=== PATIENT | male | born 1965 | race Caucasian/White ===

== ENCOUNTER → 2017-12-07 | Outpatient (CLI) | payer SELFPAY ==
[~2017-12-07] MED LIST: Ibuprofen Ib200 MG PO; THERA M PLUS T1 EACH PO
[2017-12-07 13:57] LABS: BASOPHILS ABSOLUTE AUTO 0.04 K/mm3 (0.00-0.23); BASOPHILS PERCENT AUTO 0 % (0-2); EOSINOPHILS ABSOLUTE AUTO 0.63 K/mm3 (0.00-0.68); EOSINOPHILS PERCENT AUTO 5 % (0-6); Hematocrit 26.1 % (37.0-53.0); Hemoglobin 8.5 g/dL (13.5-17.5); IMMATURE GRAN ABSOLUTE AUTO 0.09 K/mm3 (0.00-0.10); IMMATURE GRAN PERCENT AUTO 1 % (0-1); LYMPHOCYTES PERCENT AUTO 9 % (21-46); MONOCYTES ABSOLUTE AUTO 0.62 K/mm3 (0.16-1.47); MONOCYTES PERCENT AUTO 5 % (4-13); Mean Corpuscular HGB 27.9 pg (26.0-34.0); Mean Corpuscular HGB Conc 32.6 g/dL (31.5-36.5); Mean Corpuscular Volume 86 fL (80-100); NEUTROPHILS ABSOLUTE AUTO 10.22 K/mm3 (1.96-9.15); NEUTROPHILS PERCENT AUTO 80 % (41-73); Platelet Count 415 K/mm3 (150-400); RDW Standard Deviation 40.2 fL (35.1-46.3); Red Blood Cell Count 3.05 M/mm3 (4.30-5.90)
[2017-12-07 14:56] LABS: Albumin, Blood 2.4 g/dL (3.4-5.0); Albumin/Globulin Ratio 0.4 (0.8-1.8); Bilirubin, Total 1.2 mg/dL (0.1-1.0); Bun/Creatinine Ratio 21.3 (12.0-20.0); Calcium, Blood 9.7 mg/dL (8.5-10.1); Creatinine, Blood 2.39 mg/dL (0.60-1.20); Globulin, Blood 5.7 g/dL (2.2-4.0); Total Protein, Blood 8.1 g/dL (6.4-8.2)
[2017-12-07 15:02] LABS: Thyroid Stimulating Hormone 1.99 uIU/mL (0.360-4.800)
== END | disposition home or self-care (01) ==
LOC: LAB SHORT 13:35 → LAB 13:35
PROVIDERS: Emergency Medicine
DX: R05 Cough (principal); R53.83 Other fatigue
CPT/HCPCS: 80053; 84443; 85025; 85379; 85651

== ENCOUNTER 2017-12-14 16:24 | Inpatient (IN) | payer SELFPAY ==
[~2017-12-14] VITALS: Ht 185.4 cm; Wt 79.4 kg
[2017-12-14 18:10] LABS: International Normalized Ratio 1.13; Prothrombin Time Results 11.8 Sec (9.7-11.5)
[2017-12-14 19:11] LABS: Hematocrit 17.2 % (37.0-53.0); Hemoglobin 5.7 g/dL (13.5-17.5)
[2017-12-14 19:35] LABS: Magnesium, Blood 2.6 mg/dL (1.6-2.4); Uric Acid, Blood 7.4 mg/dL (3.5-7.2)
[2017-12-14 19:37] LABS: Phosphorus, Blood 5.2 mg/dL (2.5-4.9); Thyroid Stimulating Hormone 2.04 uIU/mL (0.360-4.800)
[2017-12-14 20:13] LABS: International Normalized Ratio 1.1; Prothrombin Time Results 11.5 Sec (9.7-11.5)
[2017-12-15 04:50] LABS: Source, Urine Voided
[2017-12-15 04:51] LABS: Bilirubin, Urine Neg (Neg); Blood, Urine 5+ (Neg); Glucose Qualitative, Urine Neg (Neg); Ketones, Urine Neg (Neg); Leukocyte Esterase, Urine Neg (Neg); Nitrite, Urine Neg (Neg); Protein, Urine 3+ (Neg); Urobilinogen, Urine NORM (Normal)
[2017-12-15 04:56] LABS: Appearance, Urine Clear (Clear); Color, Urine Yellow (P-Yellow)
[2017-12-15 04:57] LABS: Bacteria Few /hpf; Squamous Epithelial Cells Not Seen /hpf (Few); White Blood Cells, Urine 0-2 /hpf (0-5); Yeast/Fungi Urine Few /hpf
[2017-12-15 04:58] LABS: Granular Casts 0-2 /lpf (0); Hyaline Casts 0-2 /lpf (0-2)
[2017-12-15 05:41] LABS: BASOPHILS ABSOLUTE AUTO 0.04 K/mm3 (0.00-0.23); BASOPHILS PERCENT AUTO 0 % (0-2); EOSINOPHILS ABSOLUTE AUTO 0.66 K/mm3 (0.00-0.68); EOSINOPHILS PERCENT AUTO 5 % (0-6); Hematocrit 19.7 % (37.0-53.0); Hemoglobin 6.6 g/dL (13.5-17.5); IMMATURE GRAN ABSOLUTE AUTO 0.53 K/mm3 (0.00-0.10); IMMATURE GRAN PERCENT AUTO 4 % (0-1); LYMPHOCYTES ABSOLUTE AUTO 1.51 K/mm3 (0.84-5.20); LYMPHOCYTES PERCENT AUTO 11 % (21-46); MONOCYTES ABSOLUTE AUTO 0.82 K/mm3 (0.16-1.47); MONOCYTES PERCENT AUTO 6 % (4-13); Mean Corpuscular HGB 28.1 pg (26.0-34.0); Mean Corpuscular HGB Conc 33.5 g/dL (31.5-36.5); Mean Corpuscular Volume 84 fL (80-100); Mean Platelet Volume 9.6 fL (9.1-12.4); NEUTROPHILS ABSOLUTE AUTO 9.92 K/mm3 (1.96-9.15); NEUTROPHILS PERCENT AUTO 74 % (41-73); Platelet Count 422 K/mm3 (150-400); RDW Coefficient Variation 14.1 % (11.7-14.2); RDW Standard Deviation 42.6 fL (35.1-46.3); Red Blood Cell Count 2.35 M/mm3 (4.30-5.90); White Blood Cell Count 13.48 K/mm3 (4.00-11.30)
[2017-12-15 06:15] LABS: Alanine Aminotransfer (ALT/SGP 191 U/L (12-78); Albumin, Blood 1.7 g/dL (3.4-5.0); Albumin/Globulin Ratio 0.3 (0.8-1.8); Alk Phos 158 U/L (50-136); Anion Gap 10 mmol/L (6-16); Aspartate Aminotrans (AST/SGOT 107 U/L (12-37); Bilirubin, Total 0.7 mg/dL (0.1-1.0); Blood Urea Nitrogen 84 mg/dL (8-24); CO2, Blood 23 mmol/L (21-32); Calcium, Blood 8.8 mg/dL (8.5-10.1); Chloride, Blood 99 mmol/L (98-108); Creatinine, Blood 4.66 mg/dL (0.60-1.20); Globulin, Blood 5.2 g/dL (2.2-4.0); Glomerular Filtration Rate 14 (60-); Glucose, Blood 109 mg/dL (70-99); Magnesium, Blood 2.6 mg/dL (1.6-2.4); Phosphorus, Blood 4.9 mg/dL (2.5-4.9); Potassium, Blood 4.8 mmol/L (3.5-5.5); Sodium, Blood 132 mmol/L (136-145); Total Protein, Blood 6.9 g/dL (6.4-8.2)
[2017-12-15] MEDS ORDERED: Ibuprofen Ib200 MG PO (11:17)
[2017-12-15] MEDS ORDERED: THERA M PLUS T1 EACH PO (11:18)
[2017-12-15 17:11] LABS: RNP/SM Ab IgG 0.2 AI (<1.0)
[2017-12-15 21:30] LABS: Hematocrit 21.9 % (37.0-53.0); Hemoglobin 7.3 g/dL (13.5-17.5)
[2017-12-16 04:06] LABS: BASOPHILS ABSOLUTE AUTO 0.04 K/mm3 (0.00-0.23); BASOPHILS PERCENT AUTO 0 % (0-2); EOSINOPHILS ABSOLUTE AUTO 0.22 K/mm3 (0.00-0.68); EOSINOPHILS PERCENT AUTO 2 % (0-6); Hemoglobin 7.3 g/dL (13.5-17.5); IMMATURE GRAN ABSOLUTE AUTO 0.41 K/mm3 (0.00-0.10); IMMATURE GRAN PERCENT AUTO 3 % (0-1); LYMPHOCYTES ABSOLUTE AUTO 1.36 K/mm3 (0.84-5.20); LYMPHOCYTES PERCENT AUTO 9 % (21-46); MONOCYTES ABSOLUTE AUTO 0.61 K/mm3 (0.16-1.47); MONOCYTES PERCENT AUTO 4 % (4-13); Mean Corpuscular HGB Conc 33.2 g/dL (31.5-36.5); Mean Corpuscular Volume 84 fL (80-100); Mean Platelet Volume 10.2 fL (9.1-12.4); NEUTROPHILS ABSOLUTE AUTO 12.05 K/mm3 (1.96-9.15); NEUTROPHILS PERCENT AUTO 82 % (41-73); Platelet Count 374 K/mm3 (150-400); RDW Coefficient Variation 14.5 % (11.7-14.2); RDW Standard Deviation 44.5 fL (35.1-46.3); Red Blood Cell Count 2.61 M/mm3 (4.30-5.90); White Blood Cell Count 14.69 K/mm3 (4.00-11.30)
[2017-12-16 04:36] LABS: Alanine Aminotransfer (ALT/SGP 146 U/L (12-78); Albumin, Blood 1.5 g/dL (3.4-5.0); Anion Gap 12 mmol/L (6-16); Aspartate Aminotrans (AST/SGOT 91 U/L (12-37); Bilirubin, Direct 0.5 mg/dL (0.0-0.3); Blood Urea Nitrogen 78 mg/dL (8-24); Bun/Creatinine Ratio 16.5 (12.0-20.0); CO2, Blood 18 mmol/L (21-32); Chloride, Blood 105 mmol/L (98-108); Creatinine, Blood 4.73 mg/dL (0.60-1.20); Glomerular Filtration Rate 14 (60-); Glucose, Blood 97 mg/dL (70-99); Magnesium, Blood 2.2 mg/dL (1.6-2.4); Phosphorus, Blood 4.6 mg/dL (2.5-4.9); Potassium, Blood 4.9 mmol/L (3.5-5.5); Sodium, Blood 135 mmol/L (136-145); Uric Acid, Blood 6.5 mg/dL (3.5-7.2); Vancomycin, Random 15.7 ug/mL
[2017-12-16 04:38] LABS: Albumin/Globulin Ratio 0.3 (0.8-1.8); Alk Phos 190 U/L (50-136); Bilirubin, Indirect 0.6 mg/dL (0.1-0.7); Bilirubin, Total 1.1 mg/dL (0.1-1.0); CPK Creatine Kinase 111 U/L (39-308); Globulin, Blood 4.6 g/dL (2.2-4.0); Total Protein, Blood 6.1 g/dL (6.4-8.2)
[2017-12-16 06:00] LABS: C3 171 mg/dL
[2017-12-16 13:03] LABS: Protein, Urine Quantitative 111.7 mg/dL (0.0-11.9)
[2017-12-17 08:09] LABS: ANA Negative (NEG); Myeloperoxidase Antibody <0.2 AI (<1.0)
[2017-12-17 13:21] LABS: Albumin 1.7 g/dL (3.5-5.0); Albumin 31.6 % (45.0-80.0); Protein, Total 5.3 g/dL (6.2-8.2)
[2017-12-17 13:45] LABS: CD4 56.9 %; CD4/CD8 Ratio 1.8 to 1.0; CD8 32.4 %
== END 2017-12-16 14:20 | disposition short-term general hospital (02) | DRG 166 ==
LOC: ER 16:24 → MEDS 18:25 → ERHOLD 18:25 → PCU 18:25 → MEDS 12-15 10:30 → PCU 12-16 00:25
PROVIDERS: Emergency Medicine; Internal Medicine; Internal Medicine Critical Care Medicine; Internal Medicine Nephrology
PROC: 0B9D8ZX Drainage of Right Middle Lung Lobe, Via Natural or Artificial Opening Endoscopic, Diagnostic (ICD-10-PCS; principal; 2017-12-15 11:30)
PROC: 0BDC8ZX Extraction of Right Upper Lung Lobe, Via Natural or Artificial Opening Endoscopic, Diagnostic (ICD-10-PCS; 2017-12-15 11:30)
DX: R04.89 Hemorrhage from other sites in respiratory passages (principal); A41.9 Sepsis, unspecified organism; N17.9 Acute kidney failure, unspecified; E87.2 Acidosis; E87.1 Hypo-osmolality and hyponatremia; I77.6 Arteritis, unspecified; N18.9 Chronic kidney disease, unspecified; R74.0 Nonspecific elevation of levels of transaminase and lactic acid dehydrogenase [LDH]; E83.39 Other disorders of phosphorus metabolism; F32.9 Major depressive disorder, single episode, unspecified; R70.0 Elevated erythrocyte sedimentation rate; D89.2 Hypergammaglobulinemia, unspecified; E88.09 Other disorders of plasma-protein metabolism, not elsewhere classified; E87.5 Hyperkalemia; E86.9 Volume depletion, unspecified; D64.9 Anemia, unspecified; Z88.1 Allergy status to other antibiotic agents; Z57.5 Occupational exposure to toxic agents in other industries; Z57.2 Occupational exposure to dust; Z85.828 Personal history of other malignant neoplasm of skin
CPT/HCPCS: 36415; 36430; 71045; 71046; 71250; 74176; 80053; 80202; 81001; 81050; 82248; 82550; 83516; 83605; 83735; 84100; 84156; 84165; 84443; 84550; 85014; 85018; 85025; 85610; 85651; 85730; 86038; 86160; 86225; 86235; 86256; 86334; 86355; 86359; 86360; 86850; 86900; 86901; 86923; 87040; 87070; 87077; 87186; 87205; 87252; 87254; 87300; 88108; 88305; 88312; 94640; 94660; 94762; 96365; 96367; 96372; 99285; J0456; J0696; J0881; J1644; J2250; J3010; J3370; J7030; J7050; J7120; P9016

== ENCOUNTER → 2018-01-10 | Outpatient (CLI) | payer OTHER ==
[~2018-01-10] MED LIST changes: +(None)20 M1 PO; +ACIDOPHILUS LA1 EACH PO; +Amlodipine Besyl5 MG PO; +Bactrim Ds Tab1 EACH PO; +ESCI10 PO; +NEPHRO-VITE RX1 EACH PO; +PANT40 PO; +SODBIC650 PO; +WARF5 PO
[2018-01-10 16:47] LABS: BASOPHILS PERCENT AUTO 0 % (0-2); EOSINOPHILS PERCENT AUTO 0 % (0-6); Hematocrit 23.4 % (37.0-53.0); Hemoglobin 7.2 g/dL (13.5-17.5); IMMATURE GRAN ABSOLUTE AUTO 0.03 K/mm3 (0.00-0.10); IMMATURE GRAN PERCENT AUTO 1 % (0-1); LYMPHOCYTES ABSOLUTE AUTO 0.93 K/mm3 (0.84-5.20); LYMPHOCYTES PERCENT AUTO 15 % (21-46); MONOCYTES ABSOLUTE AUTO 0.08 K/mm3 (0.16-1.47); MONOCYTES PERCENT AUTO 1 % (4-13); Mean Corpuscular HGB 29.4 pg (26.0-34.0); Mean Corpuscular HGB Conc 30.8 g/dL (31.5-36.5); Mean Corpuscular Volume 96 fL (80-100); Mean Platelet Volume 10.1 fL (9.1-12.4); NEUTROPHILS ABSOLUTE AUTO 5.13 K/mm3 (1.96-9.15); NEUTROPHILS PERCENT AUTO 83 % (41-73); Platelet Count 220 K/mm3 (150-400); RDW Coefficient Variation 18.5 % (11.7-14.2); RDW Standard Deviation 63.6 fL (35.1-46.3); Red Blood Cell Count 2.45 M/mm3 (4.30-5.90); White Blood Cell Count 6.17 K/mm3 (4.00-11.30)
== END ==
LOC: LAB SHORT 16:31 → LAB 16:31
PROVIDERS: Internal Medicine Nephrology
DX: N18.6 End stage renal disease (principal)
CPT/HCPCS: 85025

== ENCOUNTER 2018-01-14 00:04 | Day surgery (SDC) | payer OTHER ==
[~2018-01-14 00:04] MED LIST changes: -(None)20 M1 PO; -ACIDOPHILUS LA1 EACH PO; -Amlodipine Besyl5 MG PO; -Bactrim Ds Tab1 EACH PO; -ESCI10 PO; -NEPHRO-VITE RX1 EACH PO; -PANT40 PO; -SODBIC650 PO; -WARF5 PO
[2018-01-14] MEDS ORDERED: Amlodipine Besyl5 MG PO (09:19)
[2018-01-14] MEDS ORDERED: ESCI10 PO (09:20)
[2018-01-14] MEDS ORDERED: ACIDOPHILUS LA1 EACH PO (09:24)
[2018-01-14] MEDS ORDERED: NEPHRO-VITE RX1 EACH PO (09:25)
[2018-01-14] MEDS ORDERED: PANT40 PO (09:26)
[2018-01-14] MEDS ORDERED: SODBIC650 PO (09:28)
[2018-01-14] MEDS ORDERED: (None)20 M1 PO (09:28)
[2018-01-14] MEDS ORDERED: Bactrim Ds Tab1 EACH PO (09:30)
[2018-01-14] MEDS ORDERED: WARF5 PO (09:32)
== END 2018-01-14 10:11 | disposition home or self-care (01) ==
LOC: ATC 00:04 → LAB 15:27 → ATC 15:34
DX: D64.9 Anemia, unspecified (principal); I10 Essential (primary) hypertension; E87.2 Acidosis; N19 Unspecified kidney failure; I77.6 Arteritis, unspecified; Z79.01 Long term (current) use of anticoagulants; N18.6 End stage renal disease
CPT/HCPCS: 36415; 36430; 86850; 86900; 86901; 86923; J7030; P9016

== ENCOUNTER → 2018-01-26 | Outpatient (CLI) | payer OTHER ==
[~2018-01-26] MED LIST changes: +(None)20 M1 PO; +ACIDOPHILUS LA1 EACH PO; +Amlodipine Besyl5 MG PO; +Bactrim Ds Tab1 EACH PO; +ESCI10 PO; +NEPHRO-VITE RX1 EACH PO; +PANT40 PO; +SODBIC650 PO; +WARF5 PO
[2018-01-26 11:41] LABS: BASOPHILS ABSOLUTE AUTO 0.04 K/mm3 (0.00-0.23); BASOPHILS PERCENT AUTO 0 % (0-2); EOSINOPHILS ABSOLUTE AUTO 0.06 K/mm3 (0.00-0.68); EOSINOPHILS PERCENT AUTO 1 % (0-6); Hematocrit 30.7 % (37.0-53.0); Hemoglobin 9.5 g/dL (13.5-17.5); IMMATURE GRAN ABSOLUTE AUTO 0.11 K/mm3 (0.00-0.10); IMMATURE GRAN PERCENT AUTO 1 % (0-1); LYMPHOCYTES ABSOLUTE AUTO 1.25 K/mm3 (0.84-5.20); LYMPHOCYTES PERCENT AUTO 13 % (21-46); MONOCYTES ABSOLUTE AUTO 0.93 K/mm3 (0.16-1.47); MONOCYTES PERCENT AUTO 9 % (4-13); Mean Corpuscular HGB 29.1 pg (26.0-34.0); Mean Corpuscular HGB Conc 30.9 g/dL (31.5-36.5); Mean Corpuscular Volume 94 fL (80-100); Mean Platelet Volume 9.3 fL (9.1-12.4); NEUTROPHILS ABSOLUTE AUTO 7.62 K/mm3 (1.96-9.15); NEUTROPHILS PERCENT AUTO 76 % (41-73); Platelet Count 298 K/mm3 (150-400); RDW Coefficient Variation 18.7 % (11.7-14.2); RDW Standard Deviation 65.1 fL (35.1-46.3); Red Blood Cell Count 3.27 M/mm3 (4.30-5.90); White Blood Cell Count 10.01 K/mm3 (4.00-11.30)
== END | disposition home or self-care (01) ==
LOC: LAB DAV 11:23
PROVIDERS: Internal Medicine Nephrology
DX: D69.6 Thrombocytopenia, unspecified (principal)
CPT/HCPCS: 85025

== ENCOUNTER → 2018-02-10 | Outpatient (CLI) | payer OTHER ==
[2018-02-10 17:23] LABS: Albumin, Blood 3.1 g/dL (3.4-5.0); Albumin/Globulin Ratio 1.1 (0.8-1.8); Bilirubin, Total 0.4 mg/dL (0.1-1.0); Bun/Creatinine Ratio 10.5 (12.0-20.0); Calcium, Blood 8.6 mg/dL (8.5-10.1); Creatinine, Blood 3.23 mg/dL (0.60-1.20); Globulin, Blood 2.7 g/dL (2.2-4.0); Potassium, Blood 4.1 mmol/L (3.5-5.5); Total Protein, Blood 5.8 g/dL (6.4-8.2)
== END ==
LOC: LAB 10:00 → LAB SHORT 10:00
PROVIDERS: Internal Medicine Hematology & Oncology
DX: M31.30 Wegener's granulomatosis without renal involvement (principal); N17.9 Acute kidney failure, unspecified
CPT/HCPCS: 80053

== ENCOUNTER → 2018-03-11 | Outpatient (CLI) | payer OTHER ==
[2018-03-11 09:51] LABS: BASOPHILS ABSOLUTE AUTO 0.05 K/mm3 (0.00-0.23); BASOPHILS PERCENT AUTO 1 % (0-2); EOSINOPHILS ABSOLUTE AUTO 0.08 K/mm3 (0.00-0.68); EOSINOPHILS PERCENT AUTO 1 % (0-6); Hematocrit 38.4 % (37.0-53.0); Hemoglobin 12.8 g/dL (13.5-17.5); IMMATURE GRAN ABSOLUTE AUTO 0.02 K/mm3 (0.00-0.10); IMMATURE GRAN PERCENT AUTO 0 % (0-1); LYMPHOCYTES ABSOLUTE AUTO 1.48 K/mm3 (0.84-5.20); LYMPHOCYTES PERCENT AUTO 21 % (21-46); MONOCYTES ABSOLUTE AUTO 0.75 K/mm3 (0.16-1.47); MONOCYTES PERCENT AUTO 11 % (4-13); Mean Corpuscular HGB 29.2 pg (26.0-34.0); Mean Corpuscular HGB Conc 33.3 g/dL (31.5-36.5); Mean Corpuscular Volume 88 fL (80-100); Mean Platelet Volume 10.7 fL (9.1-12.4); NEUTROPHILS ABSOLUTE AUTO 4.72 K/mm3 (1.96-9.15); NEUTROPHILS PERCENT AUTO 67 % (41-73); Platelet Count 247 K/mm3 (150-400); RDW Coefficient Variation 15.8 % (11.7-14.2); RDW Standard Deviation 50.4 fL (35.1-46.3); Red Blood Cell Count 4.38 M/mm3 (4.30-5.90)
== END ==
LOC: LAB SHORT 08:30 → LAB 08:30
PROVIDERS: Internal Medicine Nephrology
DX: N18.6 End stage renal disease (principal)
CPT/HCPCS: 85025

== ENCOUNTER → 2021-01-15 | Outpatient (CLI) | payer OTHER | END | disposition home or self-care (01) | LOC: LAB 16:30 → LAB SHORT 16:30 | DX: L08.9 Local infection of the skin and subcutaneous tissue, unspecified (principal) | CPT/HCPCS: 87070; 87077; 87147; 87186; 87205 ==

== ENCOUNTER → 2021-10-22 | Outpatient (CLI) | payer OTHER | LOC: LAB SHORT 14:54 → PLD 14:54 | DX: D48.5 Neoplasm of uncertain behavior of skin (principal) | CPT/HCPCS: 88342 ==